=== PATIENT | female | born 2000 ===

== ENCOUNTER → 2022-12-09 13:10 | Outpatient (CLI) | payer OTHER, SELFPAY ==
--- NOTE | ~2022-12-09 | US_ITS ---
EXAMINATION: US pelvic complete DATE: 12/09/2022 13:30 INDICATION: Missing IUD strings. Comparison:No prior studies for comparison. TECHNIQUE: Multiple transabdominal and endovaginal sonographic images of the pelvis performed. FINDINGS: The uterus measures 8.1 x 2.8 x 4.2 cm. There is an IUD present in the endometrium. The end ometrial complex measures 5.4 mm. The right ovary measures 2.7 x 1.4 x 1.9 cm and the left ovary measures 2.9 x 1.5 x 2.5 cm. There ar e small follicles in each ovary. Normal doppler signal in both ovaries. There is no free fluid in the pelvis. There are no abnormal masses seen on either side. IMPRESSION: 1. Unremarkable pelvic ultrasound. IUD present in the endometrium. Reviewed, dictated and finalized at location L.
== END ==
PROVIDERS: PCP Physician Assistant; Visit Provider Nurse Practitioner
DX: T83.32XA Displacement of intrauterine contraceptive device, initial encounter (principal)
CPT/HCPCS: 76856